=== PATIENT | male | born 1960 | race Caucasian/White ===

== ENCOUNTER 2020-01-31 06:00 | Observation (INO) ==
[2020-01-31] MEDS ORDERED: Aspirin 81 MG TAB.CHEW PO ONE (06:04)
[2020-01-31 06:38] LABS: Basophils # 0.1 K/mcL (0.0-0.2); Basophils % 0.8 %; Eosinophils # 0.2 K/mcL (0.0-0.6); Eosinophils % 2.5 %; Hematocrit 49.2 % (37.5-50.1); Hemoglobin 16.7 g/dL (12.9-16.9); Immature Granulocytes % 0.3 % (0-4); Lymphocytes # 2.3 K/mcL (0.6-4.6); Lymphocytes % 26.2 %; Mean Corpuscular HGB Conc 33.9 g/dL (31.6-35.5); Mean Corpuscular Hemoglobin 28.3 pg (28.0-33.3); Mean Corpuscular Volume 83.4 fL (83.0-100.0); Mean Platelet Volume 8.7 fL (9.4-12.4); Monocytes # 0.9 K/mcL (0.0-1.3); Monocytes % 10.1 %; Neutrophils # 5.2 K/mcL (1.6-8.9); Platelet Count 192 K/mcL (140-400); Segmented Neutrophils % 60.1 %; White Blood Count 8.6 K/mcL (4.3-11.1)
[2020-01-31] MEDS: Nitroglycerin 0.4 MG TAB.SUBL SL SCH ×3 (06:41→06:54)
[2020-01-31 06:42] LABS: VBG HCO3 30 mEq/L (21-27); VBG PCO2 50 mmHg (41-51); VBG PH 7.38 pH Units (7.32-7.42); VBG PO2 43 mmHg (25-50)
[2020-01-31 06:47] LABS: INR 0.9; Prothrombin Time 10.3 Seconds (9.4-12.1)
[2020-01-31 06:49] LABS: Activated Partial Thrombo Time 29.1 Seconds (26.0-36.0)
[2020-01-31] MEDS ORDERED: Isovue-370 500 ML BOTTLE IVP ONE (06:54)
[2020-01-31 06:55] LABS: Alanine Aminotransferase 21 Units/L (7-52); Albumin 4.4 g/dL (3.5-5.7); Albumin/Globulin Ratio 2.1 (1.1-2.2); Alkaline Phosphatase 64 Units/L (34-104); Aspartate Amino Transferase 17 Units/L (13-39); BUN/Creatinine Ratio 21 (6-26); Bilirubin,Direct 0.2 mg/dL (0.0-0.2); Bilirubin,Indirect 0.4 mg/dL (0.0-1.0); Bilirubin,Total 0.6 mg/dL (0.3-1.0); Blood Urea Nitrogen 20 mg/dL (6-20); Calcium 9.3 mg/dL (8.6-10.3); Carbon Dioxide 29 mEq/L (23-29); Chloride 103 mEq/L (98-107); Globulin 2.1 g/dL (2.4-3.5); Glucose 103 mg/dL (70-105); Lipase 40 Units/L (11-82); Magnesium 1.4 mg/dL (1.6-2.6); Osmolality,Calculated 295 (280-300); Potassium 3.1 mEq/L (3.5-5.1); Sodium 141 mEq/L (136-145); Total Protein 6.5 g/dL (6.4-8.9); Troponin I < 0.03 ng/mL (< 0.04); eGFR For African Americans > 60 (> 60); eGFR For Non-African Americans > 60 (> 60)
[2020-01-31 07:51] LABS: Adenovirus Not Detected (Not Detect); Bordetella Pertussis Not Detected (Not Detect); Chlamydophila pneumoniae Not Detected (Not Detect); Coronavirus 229E Not Detected (Not Detect); Coronavirus HKU1 Not Detected (Not Detect); Coronavirus NL63 Not Detected (Not Detect); Coronavirus OC43 Not Detected (Not Detect); Human Metapneumovirus Not Detected (Not Detect); Human Rhinovirus/Enterovirus Not Detected (Not Detect); Influenza A Subtype 2009 H1 Not Detected (Not Detect); Influenza B Not Detected (Not Detect); Mycoplasma pneumoniae Not Detected (Not Detect); Parainfluenza Virus 1 Not Detected (Not Detect); Parainfluenza Virus 2 Not Detected (Not Detect); Parainfluenza Virus 3 Not Detected (Not Detect); Parainfluenza Virus 4 Not Detected (Not Detect); Respiratory Syncytial Virus Not Detected (Not Detect); SARS-CoV-2 Not Detected (Not Detect)
[2020-01-31] MEDS ORDERED: Magnesium Oxide 400 MG TABLET PO STA (08:14)
[2020-01-31] MEDS ORDERED: Potassium Effervescent 25 MEQ TABLET.EFF PO ONE (08:14)
[2020-01-31] MEDS ORDERED: *HR* FentaNYL (PF) 100 MCG/2 ML VIAL IVP ONE (08:15)
[2020-01-31] MEDS ORDERED: Naloxone 0.4 MG/ML INJ IVP PRN (08:35)
[2020-01-31] MEDS ORDERED: D5% in Water 1,000 ML IVC PRN (09:15)
[2020-01-31] MEDS ORDERED: Nitroglycerin 0.4 MG TAB.SUBL SL PRN (09:15)
[2020-01-31] MEDS ORDERED: *HR* Dextrose 50 % in Water (Vial) 50 ML VIAL IVP PRN (09:15)
[2020-01-31] MEDS ORDERED: Dextrose Gel 15 GM/37.5 ML TUBE PO PRN ×2 (09:15)
[2020-01-31] MEDS: Insulin LISPRO 300 UNITS/3 ML VIAL SQ SCH ×2 (10:46→17:18)
[2020-01-31 13:27] LABS: Chol/HDL Ratio 3.2 (0-4.9)
[2020-01-31 13:39] LABS: Estimated Average Glucose 237 mg/dl
[2020-01-31] MEDS ORDERED: Insulin DETEMIR 100 UNIT/ML X5UNITS SQ SCH ×2 (21:00)
[2020-02-01 00:52] LABS: BUN/Creatinine Ratio 16 (6-26); Blood Urea Nitrogen 18 mg/dL (6-20); Calcium 9.2 mg/dL (8.6-10.3); Carbon Dioxide 31 mEq/L (23-29); Chloride 100 mEq/L (98-107); Glucose 221 mg/dL (70-105); Magnesium 1.5 mg/dL (1.6-2.6); Osmolality,Calculated 295 (280-300); Potassium 3.7 mEq/L (3.5-5.1); Sodium 138 mEq/L (136-145); eGFR For African Americans > 60 (> 60); eGFR For Non-African Americans > 60 (> 60)
[2020-02-01] MEDS ORDERED: Regadenoson 0.4 MG/5 ML SYRINGE IVP ONE (05:52)
[2020-02-01] MEDS: Insulin LISPRO 300 UNITS/3 ML VIAL SQ SCH (08:01)
[2020-02-01] MEDS ORDERED: Aspirin Enteric Coated 81 MG Tablet PO SCH (09:00)
[2020-02-01] MEDS ORDERED: hydroCHLOROthiazide 25 MG TABLET PO SCH (09:00)
[2020-02-01] MEDS ORDERED: [UNRECOGNIZED DRUG - OTHER] PO SCH (09:00)
[2020-02-01] MEDS ORDERED: HYDROCHLOROTHIAZ PO SCH (09:00)
[2020-02-01] MEDS ORDERED: METOPROLOL SU PO SCH (09:00)
[2020-02-01 10:49] VITALS: BP 153/85
== END 2020-02-01 12:49 | disposition home or self-care (01) ==
LOC: EMEROOARM 06:00 → 3BNU 06:00 → SUATTDRO 08:42 → 3BNU 10:02
PROVIDERS: ADMIT Student in an Organized Health Care Education/Training Program; ATTEND Family Medicine